=== PATIENT | male | born 1965 | race Caucasian/White ===

== ENCOUNTER 2018-01-23 18:49 | Emergency (ER) | payer BC, OTHER ==
[~2018-01-23 18:49] MED LIST: AZIT-18 PO; HYDR12.556 PO; IBU800 PO; LOR5 PO; PRED20TA6 PO; PRO25 PO
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
[2018-01-23] MEDS ORDERED: NS(*) 0.9% 1000 ML BAG 1,000 ML IV ONE (19:01)
[2018-01-23] MEDS ORDERED: ONDANSETRON 4 MG/2 ML VIAL IVP ONE (19:05)
[2018-01-23] MEDS ORDERED: fentaNYL CITR 100 MCG/2 ML AMP IVP ONE (19:05)
[2018-01-23] MEDS ORDERED: LIDOCAINE 5% OINT 35.44 GM OINT TP PRN (19:10)
[2018-01-23] MEDS ORDERED: IOPAMIDOL 76% 75 ML INFUS BTL 75 ML ONE (19:20)
[2018-01-23 19:41] LABS: PLATELET COUNT, AUTOMATED 282 K/uL (150-450)
[2018-01-23 20:30] VITALS: BP 137/99
[2018-01-23] MEDS ORDERED: HYDROmorphone* 1 MG/ML 1 MG/ML ML IVP ONE ×2 (20:30→21:25)
--- NOTE | 2018-01-23 20:46 | RADIOLOGY IMAGING REPORT ---
FACILITY: [facility] PATIENT NAME: Abraham Gamez : 1965 MR: [id number] V: [id number] EXAM DATE: ORDERING PHYSICIAN: JOSE ROBERTO GRANDE TECHNOLOGIST: Location: [facility] [place] Patient: Abraham Gamez : 1965 Visit/Account:[id number] Date of Sevice: 01/23/2018 CHEST SINGLE AP Additional pertinent History: Bucked off of horse COMPARISON STUDIES: none FINDINGS: Support lines and catheters: None Lungs and Pleura: No pneumothorax. No lung contusion. Heart and vasculature: Negative. [place] and Mediastinum: Negative. Bones and Chest wall: Negative. Upper Abdomen: Negative. IMPRESSION: 1. Negative chest for acute cardiopulmonary disease. Report Dictated By: Nasir Ken MD at 01/23/2018 8:35 PM Report E-Signed By: Nasir Ken MD at 01/23/2018 8:42 PM WSN:[id number]
--- NOTE | 2018-01-23 20:47 | RADIOLOGY IMAGING REPORT ---
FACILITY: [facility] PATIENT NAME: Abraham Gamez : 1965 MR: [id number] V: [id number] EXAM DATE: ORDERING PHYSICIAN: JOSE ROBERTO GRANDE TECHNOLOGIST: Location: [facility] Patient: Abraham Gamez : 1965 Visit/Account:[id number] Date of Sevice: 01/23/2018 ABDOMEN/PELVIS W/O CONTRAST EXAMINATION: CT scan of the abdomen and pelvis without contrast. Reconstructed sagittal and coronal scans obtained as well HISTORY: Bucked off horse One of the following dose optimization techniques was utilized in the performance of this exam: Autom ated exposure control; adjustment of the mA and/or kV according to the patient's size; or use of an i terative reconstruction technique. Specific details can be referenced in the facility's radiology C T exam operational policy. TECHNIQUE: CT scan of the abdomen and pelvis performed from the lung base through pubic COMPARISON STUDIES: None FINDINGS: Liver/Biliary: No liver lesions. No evidence of liver laceration. No perihepatic fluid Pancreas: Negative Spleen: No splenic laceration or perisplenic fluid Adrenal glands: Negative Kidneys/Retroperitoneum: Negative Pelvic structures: Prostate mildly enlarged measuring 5 cm. Bladder is unremarkable. Bowel/peritoneum/mesenteries: No colonic mass lesion or inflammation. No interloop fluid. No bowel ed schuyler. Appendix normal. Vessels: Negative Musculoskeletal/body wall: No compression deformities or fractures of the visualized lower thoracic, lumbar spine, sacrum or coccyx. Pelvis unremarkable. No pelvic fractures. Both the superior and infer ior pubic rami well-maintained. Previous intramedullary clinton fixation changes within the proximal left femur. No evidence of fracture or loosening of the orthopedic hardware. Small inguinal herniations o f peritoneal fat left greater than right. Lymph node assessment: Negative Lower chest: Negative IMPRESSION: 1. Negative CT scan of the abdomen/pelvis for acute pathology. Report Dictated By: Nasri Ken MD at 01/23/2018 8:37 PM Report E-Signed By: Nasir Ken MD at 01/23/2018 8:42 PM WSN:[id number]
--- NOTE | 2018-01-23 20:47 | RADIOLOGY IMAGING REPORT ---
FACILITY: [facility] PATIENT NAME: Abraham Gamez : 1965 MR: [id number] V: [id number] EXAM DATE: ORDERING PHYSICIAN: JOSE ROBERTO GRANDE TECHNOLOGIST: Location: [facility] Patient: Abraham Gamze : 1965 Visit/Account:[id number] Date of Sevice: 01/23/2018 HIP LEFT HISTORY: Bucked off of a horse Pelvis and left hip films FINDINGS: Pelvic girdle is intact. No pelvic fractures. Left proximal femur demonstrates an intramedullary clinton. Well-positioned intramedullary clinton with no fracture or loosening. Exuberant callus formation and bon y healing changes involving the proximal femoral diaphysis with no acute fracture. Soft tissues unrem arkable. IMPRESSION: 1. Negative pelvis and proximal left femur films Report Dictated By: Nasir Ken MD at 01/23/2018 8:43 PM Report E-Signed By: Nasir Ken MD at 01/23/2018 8:44 PM WSN:[id number]
--- NOTE | 2018-01-23 20:50 | RADIOLOGY IMAGING REPORT ---
FACILITY: [facility] [place] PATIENT NAME: Abraham Gamez : 1965 MR: [id number] V: [id number] EXAM DATE: ORDERING PHYSICIAN: JOSE ROBERTO GRANDE TECHNOLOGIST: Location: [facility] Patient: Abraham Gamez : 1965 Visit/Account:[id number] Date of Sevice: 01/23/2018 FEMUR LEFT HISTORY: Fell off horse 4 view examination of the left femur. FINDINGS: Intramedullary clinton extending through the length of the femur from the subtrochanteric aspect of the p roximal femur to the distal femoral metaphysis. No fracture or loosening of the orthopedic hardware. Exuberant bony callus and cortical thickening changes noted along the mid femur at the site of previo us fracture. Visualized knee joint demonstrates asymmetric medial joint compartment narrowing change. Left hip is unremarkable Visualized left hemipelvis unremarkable. IMPRESSION: 1. Negative left femur for acute bony pathology. Stable appearing intramedullary clinton Report Dictated By: Nasir Ken MD at 01/23/2018 8:44 PM Report E-Signed By: Nasir Ken MD at 01/23/2018 8:46 PM WSN:[id number]
--- NOTE | 2018-01-23 20:52 | RADIOLOGY IMAGING REPORT ---
FACILITY: [facility] [place] [place] PATIENT NAME: Abraham Gamez : 1965 MR: [id number] V: [id number] EXAM DATE: ORDERING PHYSICIAN: JOSE ROBERTO GRANDE TECHNOLOGIST: Location: [facility] Patient: Abraham Gamez : 1965 Visit/Account:[id number] Date of Sevice: 01/23/2018 HUMERUS RIGHT HISTORY: FELL OFF HORSE TWO-VIEW EXAMINATION RIGHT HUMERUS. FINDINGS: No acute bony pathology. Glenohumeral joint is well-maintained. Elbow joint is grossly normal. IMPRESSION: 1. Negative right humerus Report Dictated By: Nasir Ken MD at 01/23/2018 8:48 PM Report E-Signed By: Nasir Ken MD at 01/23/2018 8:50 PM WSN:[id number]
--- NOTE | 2018-01-23 20:52 | RADIOLOGY IMAGING REPORT ---
FACILITY: [facility] [place] PATIENT NAME: Abraham Gamez : 1965 MR: [id number] V: [id number] EXAM DATE: ORDERING PHYSICIAN: JOSE ROBERTO GRANDE TECHNOLOGIST: Location: [facility] Patient: Abraham Gamez : 1965 Visit/Account:[id number] Date of Sevice: 01/23/2018 FOREARM RIGHT HISTORY: FELL OFF HORSE TWO-VIEW EXAMINATION OF THE RIGHT forearm FINDINGS: No acute bony pathology. Radius and ulna intact. Elbow joint demonstrates no joint effusion. Degenera tive spurring changes noted along the radial head and coronoid process. Wrist joints unremarkable. IMPRESSION: 1. Negative right forearm for acute bony pathology. Report Dictated By: Nasir Ken MD at 01/23/2018 8:47 PM Report E-Signed By: Nasir Ken MD at 01/23/2018 8:48 PM WSN:[id number]
[2018-01-23] MEDS ORDERED: HYDR-4309 PO (22:12)
--- NOTE | 2018-01-23 22:25 | RADIOLOGY IMAGING REPORT ---
FACILITY: [facility] PATIENT NAME: Abraham Gamez : 1965 MR: [id number] V: [id number] EXAM DATE: ORDERING PHYSICIAN: JOSE ROBERTO GRANDE TECHNOLOGIST: Location: [facility] [place] Patient: Abraham Gamez : 1965 Visit/Account:[id number] Date of Sevice: 01/23/2018 CT of the left hip and femur, without contrast: Indication: Pain following injury. Technique: Helical CT was performed from the level of the left mid pelvis through the left knee witho ut contrast. Multiplanar reconstructions are reviewed. One of the following dose optimization technBISSELL Pet Foundation ues was utilized in the performance of this exam: Automated exposure control; adjustment of the mA an d/or kV according to the patient's size; or use of an iterative reconstruction technique. Specific de tails can be referenced in the facility's radiology CT exam operational policy. Comparison: Plain radiographs from earlier the same day. Findings: There is no evidence of fracture, dislocation, or acute skeletal deformity. There is an old healed fracture in the mid shaft of the left femur. An intramedullary clinton is present in the left fem ur. The clinton and transverse screws appear intact and unremarkable. The left hip appears unremarkable. 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 The visualized skeletal structures ar e otherwise unremarkable. There are no signs of hematoma or other focal soft tissue abnormality. Impression: No evidence of fracture, dislocation, or acute skeletal deformity. Report Dictated By: Eliseo Villatoro MD at 01/23/2018 10:09 PM Report E-Signed By: Eliseo Villatoro MD at 01/23/2018 10:21 PM WSN:[id number]
--- NOTE | 2018-01-23 22:25 | RADIOLOGY IMAGING REPORT ---
FACILITY: [facility] PATIENT NAME: Abraham Gamez : 1965 MR: [id number] V: [id number] EXAM DATE: ORDERING PHYSICIAN: JOSE ROBERTO GRANDE TECHNOLOGIST: Location: [facility] Patient: Abraham Gamez : 1965 Visit/Account:[id number] Date of Sevice: 01/23/2018 CT of the left hip and femur, without contrast: Indication: Pain following injury. Technique: Helical CT was performed from the level of the left mid pelvis through the left knee witho ut contrast. Multiplanar reconstructions are reviewed. One of the following dose optimization [employer] ues was utilized in the performance of this exam: Automated exposure control; adjustment of the mA an d/or kV according to the patient's size; or use of an iterative reconstruction technique. Specific de tails can be referenced in the facility's radiology CT exam operational policy. Comparison: Plain radiographs from earlier the same day. Findings: There is no evidence of fracture, dislocation, or acute skeletal deformity. There is an old healed fracture in the mid shaft of the left femur. An intramedullary clinton is present in the left fem ur. The clinton and transverse screws appear intact and unremarkable. The left hip appears unremarkable. 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 The visualized skeletal structures ar e otherwise unremarkable. There are no signs of hematoma or other focal soft tissue abnormality. Impression: No evidence of fracture, dislocation, or acute skeletal deformity. Report Dictated By: Eliseo Villatoro MD at 01/23/2018 10:09 PM Report E-Signed By: Eliseo Villatoro MD at 01/23/2018 10:21 PM [id number]
[2018-01-23] MEDS ORDERED: APAP/HYDROCODONE 325/5 TAB PO ONE (22:40)
[2018-01-23] MEDS ORDERED: ACET/HYDROC 5/325MG TH ER ONLY 2 TAB/BOTTLE PO ONE (22:40)
== END 2018-01-23 23:00 | disposition home or self-care (01) ==
LOC: ER 19:21
DX: M25.552 Pain in left hip (principal); S50.811A Abrasion of right forearm, initial encounter; E86.0 Dehydration; V80.010A Animal-rider injured by fall from or being thrown from horse in noncollision accident, initial encounter; Y93.52 Activity, horseback riding
CPT/HCPCS: 36415; 71045; 73060; 73090; 73502; 73552; 73700; 74176; 81001; 82150; 83605; 83690; 85025; 96361; 96374; 96375; 96376; 99285; J1170; J2405; J3010; J7030; Q9967; 82040; 82247; 82310; 82374; 82435; 82565; 82947; 84075; 84132; 84155; 84295; 84450; 84460; 84520

== ENCOUNTER → 2018-10-04 | Outpatient (CLI) | payer OTHER ==
[~2018-10-04] MED LIST changes: +HYDR-653 PO
--- NOTE | 2018-10-04 11:09 | EKG ---
FACILITY: [facility] PATIENT NAME: KOREY MEHTA : [id number] MR: [id number] V: [id number] EXAM DATE: ORDERING PHYSICIAN: ANGELICA COOK TECHNOLOGIST: [place] Test Reason : PREOP-R KNEE Blood Pressure : / mmHG Vent. Rate : 076 BPM Atrial Rate : 076 BPM P-R Int : 138 ms QRS Dur : 080 ms QT Int : 368 ms P-R-T Axes : 038 016 000 degrees QTc Int : 414 ms Sinus rhythm Nonspecific T wave flattening inferolateral leads Confirmed by SHANNA LUZ ([id number] on 10/04/2018 5:25:35 PM Referred By: JOYCE Confirmed By:SHANNA LUZ
== END ==
LOC: LAB 10:41
PROVIDERS: ATTEND Anesthesiology
DX: Z01.812 Encounter for preprocedural laboratory examination (principal); Z01.810 Encounter for preprocedural cardiovascular examination
CPT/HCPCS: 36415; 82040; 82247; 82310; 82374; 82435; 82565; 82947; 84075; 84132; 84155; 84295; 84450; 84460; 84520; 93005